=== PATIENT | male | born 1985 | race African-American/Black ===

== ENCOUNTER 2017-08-04 18:03 | Emergency (ER) | payer OTHER ==
[~2017-08-04] VITALS: Ht 167.6 cm; Wt 77.1 kg
[~2017-08-04 18:03] MED LIST: APAP500 PO; AZITHROMYCIN 2250 MG PO; BACTRIM DS TAB1 EACH PO; DARVOCET-N 1001 EACH PO; DELSYM30 MG/5 M1 PO; MEDROL DOSPAK21 TAB PO; NOHOMEMEDICATIONS; NORCO 5-325 TA1 EACH PO; PHENERGAN 25 MG25 M1 PO; PROAIR HFA8.5 GM INH; PROMETH-CODEIN 65 ML PO; TESSALON PERLE100 MG PO; ULTRAM 50MG TAB50 MG PO
[2017-08-04] MEDS ORDERED: FLEXERIL PO (20:34)
== END 2017-08-04 21:15 | disposition home or self-care (01) ==
LOC: ER 18:03
DX: S06.0X0A Concussion without loss of consciousness, initial encounter (principal); F17.210 Nicotine dependence, cigarettes, uncomplicated; Z88.6 Allergy status to analgesic agent; W22.8XXA Striking against or struck by other objects, initial encounter; Y93.89 Activity, other specified; Y92.89 Other specified places as the place of occurrence of the external cause; Y99.8 Other external cause status